=== PATIENT | female | born 1970 | race Two or more races ===

== ENCOUNTER → 2016-10-18 | Outpatient (CLI) | payer MEDICAID ==
[~2016-10-18] VITALS: Ht 160 cm; Wt 92.1 kg
== END | disposition home or self-care (01) ==
LOC: Rad HDHVI 09:21
PROVIDERS: ATTEND Internal Medicine Cardiovascular Disease
DX: R07.89 Other chest pain (principal); R01.1 Cardiac murmur, unspecified; E11.9 Type 2 diabetes mellitus without complications; Z82.49 Family history of ischemic heart disease and other diseases of the circulatory system
CPT/HCPCS: 78452; 93017; 93306; 96374; A9500

== ENCOUNTER → 2018-11-14 | Outpatient (CLI) | payer MEDICAID ==
[~2018-11-14] MED LIST: CANA300T OR; GLYB5TAB8 PO
== END | disposition home or self-care (01) ==
LOC: Rad HDHVI 16:15
PROVIDERS: ATTEND Internal Medicine
DX: R00.2 Palpitations (principal); R06.02 Shortness of breath; I11.9 Hypertensive heart disease without heart failure
CPT/HCPCS: 93306

== ENCOUNTER → 2018-11-19 | Outpatient (CLI) | payer MEDICAID ==
[~2018-11-19] VITALS: Ht 160 cm; Wt 86.2 kg
== END | disposition home or self-care (01) ==
LOC: Rad HDHVI 09:33
PROVIDERS: ATTEND Internal Medicine
DX: R06.02 Shortness of breath (principal); R00.2 Palpitations; R63.8 Other symptoms and signs concerning food and fluid intake; I10 Essential (primary) hypertension; E78.5 Hyperlipidemia, unspecified; F32.9 Major depressive disorder, single episode, unspecified; F41.9 Anxiety disorder, unspecified; E11.9 Type 2 diabetes mellitus without complications
CPT/HCPCS: 78452; 93017; 96374; A9500

== ENCOUNTER → 2020-09-29 | Outpatient (CLI) | payer MEDICAID | END | disposition home or self-care (01) | LOC: Rad HDHVI 13:52 | PROVIDERS: ATTEND Internal Medicine | DX: I05.8 Other rheumatic mitral valve diseases (principal); I11.9 Hypertensive heart disease without heart failure; R07.89 Other chest pain | CPT/HCPCS: 93306 ==

== ENCOUNTER → 2020-10-12 | Outpatient (CLI) | payer MEDICAID ==
[~2020-10-12] VITALS: Ht 157.5 cm; Wt 79.4 kg
== END | disposition home or self-care (01) ==
LOC: Rad HDHVI 14:01
PROVIDERS: ATTEND Internal Medicine
DX: R07.89 Other chest pain (principal); D36.10 Benign neoplasm of peripheral nerves and autonomic nervous system, unspecified; H02.409 Unspecified ptosis of unspecified eyelid
CPT/HCPCS: 78452; 93017; 96374; A9500

== ENCOUNTER → 2023-07-12 | Outpatient (CLI) | payer MEDICAID ==
[~2023-07-12] VITALS: Ht 157.5 cm; Wt 64.9 kg
[2023-07-12] MEDS: ADENOSINE 54 MG in GIVE UN-DILUTED 0 ML IV ONE (10:26)
== END | disposition home or self-care (01) ==
LOC: XYW 09:12
PROVIDERS: ATTEND Internal Medicine
DX: I10 Essential (primary) hypertension (principal); R07.9 Chest pain, unspecified; R06.02 Shortness of breath; E78.5 Hyperlipidemia, unspecified
CPT/HCPCS: 78452; 93017; A9500; J0153

== ENCOUNTER → 2023-07-19 | Outpatient (CLI) | payer MEDICAID | END | disposition home or self-care (01) | LOC: XYW 10:16 | PROVIDERS: ATTEND Internal Medicine | DX: R07.9 Chest pain, unspecified (principal) | CPT/HCPCS: 93306 ==